=== PATIENT | male | born 2000 | race Caucasian/White ===

== ENCOUNTER 2022-03-05 08:52 | Emergency (ER) | payer OTHER ==
[2022-03-05] MEDS ORDERED: Lidocaine 1% (PF) 30 ML VIAL ONE (09:16)
[2022-03-05] MEDS ORDERED: Bacitracin 1 PK ONE (09:35)
== END 2022-03-05 09:48 | disposition home or self-care (01) ==
LOC: NAV ERS 08:52
DX: S01.81XA Laceration without foreign body of other part of head, initial encounter (principal); W50.0XXA Accidental hit or strike by another person, initial encounter; Y93.61 Activity, american tackle football
CPT/HCPCS: 12011; J2001